=== PATIENT | female | born 2005 | race Caucasian/White ===

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

== ENCOUNTER 2024-04-16 13:55 | Emergency (ER) | payer OTHER ==
[2024-04-16 14:07] VITALS: BP 113/80; PULSE 80; RESP 19; TEMP 97.3; BMI 19.1
[2024-04-16] MEDS ORDERED: ACETAMINOPHEN 325 MG TABLET (FP) ONE (15:21)
[2024-04-16] MEDS: ACETAMINOPHEN 500 MG TABLET (FP) PO ONE (15:29)
== END 2024-04-16 16:47 | disposition home or self-care (01) ==
LOC: JER 13:55
DX: R07.2 Precordial pain (principal)
CPT/HCPCS: 71046-TC-FY; 84703; 93005; 93010; 99284-25